=== PATIENT | male | born 1940 | race Caucasian/White ===

== ENCOUNTER 2022-10-18 09:03 | Outpatient (CLI) | payer MEDICARE, BC ==
[2022-10-18 10:48] LABS: Hemoglobin 13.8 g/dL (13.5-17.5); Mean Corpuscular Hemoglobin 33.4 pg (27.0-33.0); Mean Corpuscular Volume 98.3 fl (81.2-95.1); Mean Platelet Volume 10.6 fl (7.4-10.4); Platelet Count 171 10x3/uL (150-450); RBC Distribution Width 12.3 % (11.5-14.5); Red Blood Cell (RBC) Count 4.13 10x6/uL (4.32-5.72); White Blood Cell (WBC) Count 6.5 10x3/uL (3.5-10.5)
[2022-10-18 11:06] LABS: Anion Gap 12 mmol/L (10-20); BUN (Urea Nitrogen) 23 mg/dL (8.4-25.7); Calc. Creatinine Clearance 0 mL/min (70-130); Calcium 9.1 mg/dL (7.8-10.44); Carbon Dioxide 29 mmol/L (23-31); Chloride 105 mmol/L (98-107); Estimated GFR 61; Glucose 72 mg/dL (83-110); Potassium 4.5 mmol/L (3.5-5.1); Sodium 141 mmol/L (136-145)
== END 2022-10-18 09:04 | disposition home or self-care (01) ==
LOC: LABBT 09:03
PROVIDERS: ATTEND Internal Medicine Cardiovascular Disease
DX: Z01.818 Encounter for other preprocedural examination (principal); I47.20 Ventricular tachycardia, unspecified; R55 Syncope and collapse
CPT/HCPCS: 80048; 85027; 93005; 93010

== ENCOUNTER 2022-10-23 08:22 | Day surgery (SDC) | payer MEDICARE, BC ==
[2022-10-19 14:57] VITALS: BMI 23.1
[2022-10-23] MEDS ORDERED: Lidocaine 1% (PF) 30 ML VIAL ONE ×2 (09:04→11:59)
[2022-10-23] MEDS ORDERED: Isoproterenol 0.2 MG/1 ML AMP ONE (09:04)
[2022-10-23] MEDS ORDERED: Heparin 10,000 UNITS/ 10 ML VIAL ONE (09:04)
[2022-10-23] MEDS ORDERED: Meperidine HCl/PF 25 MG/ML VIAL ONE (10:00)
[2022-10-23] MEDS ORDERED: Midazolam HCl 2 mg/2 ml Vial ONE (10:00)
[2022-10-23] MEDS ORDERED: PROPOFOL 200 MG/20 ML VIAL ONE (11:01)
[2022-10-23] MEDS ORDERED: CEFAZOLIN 1 GM VIAL ONE (11:59)
[2022-10-23] MEDS ORDERED: Gentamicin 80 MG/2 ML VIAL ONE (11:59)
== END 2022-10-23 17:46 | disposition home or self-care (01) ==
LOC: SDC 08:22
PROVIDERS: ATTEND Internal Medicine Cardiovascular Disease
PROC: 4A023FZ Measurement of Cardiac Rhythm, Percutaneous Approach (ICD-10-PCS; principal; 2022-10-23)
PROC: 4A0234Z Measurement of Cardiac Electrical Activity, Percutaneous Approach (ICD-10-PCS; 2022-10-23)
PROC: 02K83ZZ Map Conduction Mechanism, Percutaneous Approach (ICD-10-PCS; 2022-10-23)
PROC: 0JH606Z Insertion of Pacemaker, Dual Chamber into Chest Subcutaneous Tissue and Fascia, Open Approach (ICD-10-PCS; 2022-10-23)
PROC: 02H63JZ Insertion of Pacemaker Lead into Right Atrium, Percutaneous Approach (ICD-10-PCS; 2022-10-23)
PROC: 02HK3JZ Insertion of Pacemaker Lead into Right Ventricle, Percutaneous Approach (ICD-10-PCS; 2022-10-23)
DX: I48.19 Other persistent atrial fibrillation (principal); I47.1 Supraventricular tachycardia; R55 Syncope and collapse; I47.20 Ventricular tachycardia, unspecified; I49.3 Ventricular premature depolarization; I08.1 Rheumatic disorders of both mitral and tricuspid valves; N40.0 Benign prostatic hyperplasia without lower urinary tract symptoms; I50.9 Heart failure, unspecified; Z79.899 Other long term (current) drug therapy
CPT/HCPCS: 33208; 93613; 93620; 93621; 93623; C1785; C1898; J0690; J1580; J1644; J2001; J2175; J2250; J2704

== ENCOUNTER 2023-05-21 10:00 | Day surgery (SDC) | payer MEDICARE, BC ==
[2023-05-18 13:52] VITALS: BMI 24.1
[2023-05-18 14:39] LABS: Hemoglobin 14.7 g/dL (13.5-17.5); Mean Corpuscular HGB CONC 32.7 g/dL (32.0-36.0); Mean Corpuscular Hemoglobin 32.4 pg (27.0-33.0); Mean Corpuscular Volume 99.1 fl (81.2-95.1); Mean Platelet Volume 11.1 fl (7.4-10.4); Platelet Count 161 10x3/uL (150-450); Red Blood Cell (RBC) Count 4.54 10x6/uL (4.32-5.72); White Blood Cell (WBC) Count 6.6 10x3/uL (3.5-10.5)
[2023-05-18 15:09] LABS: PTT 25.8 sec (22.0-33.0); Prothrombin Time 10.4 sec (9.5-12.1)
[2023-05-18 15:14] LABS: Anion Gap 17 mmol/L (10-20); BUN (Urea Nitrogen) 23 mg/dL (8.4-25.7); Calc. Creatinine Clearance 42 mL/min (70-130); Calcium 9.3 mg/dL (7.8-10.44); Carbon Dioxide 23 mmol/L (23-31); Chloride 105 mmol/L (98-107); Estimated GFR 62; Glucose 93 mg/dL (83-110); Potassium 4.6 mmol/L (3.5-5.1); Sodium 140 mmol/L (136-145)
[2023-05-21] MEDS ORDERED: CEFAZOLIN 1 GM VIAL ONE (11:17)
[2023-05-21] MEDS ORDERED: Lidocaine 1% (PF) 30 ML VIAL ONE (11:17)
[2023-05-21] MEDS ORDERED: Gentamicin 80 MG/2 ML VIAL ONE (11:17)
[2023-05-21] MEDS ORDERED: fentaNYL 50 mcg/mL 1 mL Vial ONE ×2 (11:56→17:25)
[2023-05-21] MEDS ORDERED: Lidocaine 1% PF 5 ML VIAL ONE (12:43)
[2023-05-21] MEDS ORDERED: PHENYLEPHRINE-NS 100 MCG/ML 10 ML SYRINGE ONE (12:43)
[2023-05-21] MEDS ORDERED: PROPOFOL 40 ML ONE (14:02)
== END 2023-05-21 18:50 | disposition home or self-care (01) ==
LOC: SDC 10:00
PROVIDERS: ATTEND Internal Medicine Cardiovascular Disease
DX: R55 Syncope and collapse (principal); T82.7XXD Infection and inflammatory reaction due to other cardiac and vascular devices, implants and grafts, subsequent encounter
CPT/HCPCS: 33208; 33233; 33235; 71045; 80048; 85027; 85610; 85730; 87040; 87070; 87205; 97139 ×2; C1785; C1898 ×2; J3010; J0690; J1580; J2001; J2704

== ENCOUNTER 2024-11-21 10:32 | Outpatient (CLI) | payer MEDICARE | END 2024-11-21 10:33 | disposition home or self-care (01) | LOC: BICRAD 10:32 | PROVIDERS: ATTEND Radiology Diagnostic Neuroimaging | DX: R90.89 Other abnormal findings on diagnostic imaging of central nervous system (principal) | CPT/HCPCS: 71046 ==

== ENCOUNTER 2024-11-27 12:13 | Outpatient (CLI) | payer MEDICARE | END 2024-11-27 12:14 | disposition home or self-care (01) | LOC: MRI 12:13 | PROVIDERS: ATTEND Psychiatry & Neurology Neurology | DX: R90.89 Other abnormal findings on diagnostic imaging of central nervous system (principal) | CPT/HCPCS: 70553; 76018; 76376 ==